=== PATIENT | female | born 1980 | race Caucasian/White ===

== ENCOUNTER 2018-09-16 16:43 | Emergency (ER) | payer BC ==
[2018-09-16] MEDS ORDERED: NS 0.9% 1000 ML** 2,000 ML IV ONE (17:24)
--- NOTE | 2018-09-16 17:33 | ED ---
Abdominal Pain/Female - HPI Summary HPI Summary: The patient is a 38 y/o F presenting to [facility] accompanied by with a chief complaint of sudden onset intermittent cramping in the umbilical region starting this afternoon. She reports that she was running a marathon today, and she had sudden abd pain following the run. She states she ate normally today and last night, and her ate the same as the patient. Watery diarrhea with episodes of hematochezia and ovi blood accompanied the abd cramping. The abd pain was alleviated with BM, but then the pain would return about 10-15 minutes later. Currently the pain is rated 2/10 in severity, but worsens intermittently. She additionally c/o increased urgency of BM, nausea, dry heaving, and headache. She denies fever, chills, and vomiting. She notes that she's had blood in her stool before, but not to this extent. Her last colonoscopy was over 10 years ago. LNMP: now, she uses the Nuva Ring. No hx. Surgical hx of three sections. FHx of DM. Nonsmoker, occasional EtOH, no substance use. - History of Current Complaint Chief Complaint: EDAbdPain Stated Complaint: ABDOMINAL PAIN PER PT Time Seen by Provider: 09/16/18 17:24 Hx Obtained From: Patient Onset/Duration: Sudden Onset, Lasting Hours, Still Present Severity Initially: Severe Severity Currently: Moderate Pain Intensity: 2 Pain Scale Used: 0-10 Numeric Location: Umbilical Radiates: No Character: Cramping Aggravating Factor(s): Nothing Alleviating Factor(s): Bowel Movement Associated Signs and Symptoms: Positive: Blood in Stool, Nausea, Other: - POSITIVE: dry heaving, diarrhea, increased urgency of BM, headache; NEGATIVE: chills. Negative: Fever, Vomiting Allergies/Adverse Reactions: Allergies Allergy/AdvReac Type Severity Reaction Status Date / Time cephalexin [From Keflex] Allergy Hives Verified 09/16/18 16:48 Penicillins Allergy Hives Verified 09/16/18 16:48 vancomycin Allergy Hives Verified 09/16/18 16:48 PMH/Surg Hx/FS Hx/Imm Hx Endocrine/Hematology History: Denies: Hx Diabetes Cardiovascular History: Denies: Hx Hypercholesterolemia, Hx Hypertension - Surgical History Surgery Procedure, Year, and Place: three C-sections Infectious Disease History: No Infectious Disease History: Denies: Traveled Outside the [place] in Last 30 Days - Family History Known Family History: Positive: Diabetes - brother Negative: Cardiac Disease, Hypertension - Social History Alcohol Use: Occasionally Hx Substance Use: No Substance Use Type: Reports: None Hx Tobacco Use: No Smoking Status (MU): Never Smoked Tobacco Do You Chew or Dip Tobacco: No Have You Chewed or Dipped Tobacco in the LAST YEAR: No Have You Smoked in the Last Year: No Review of Systems Negative: Fever, Chills Positive: Abdominal Pain - umbilical cramping intermittently, Diarrhea - watery with blood, Nausea, Other - dry heaving, increased urgency with BM. Negative: Vomiting Positive: Headache All Other Systems Reviewed And Are Negative: Yes Physical Exam - Summary Physical Exam Summary: VITAL SIGNS: Reviewed. GENERAL: Patient is a well-developed and nourished female who is lying comfortable in the stretcher. Patient is not in any acute respiratory distress. HEAD AND FACE: Normocephalic and atraumatic. EYES: PERRLA, EOMI x 2, No injected conjunctiva. EARS: Hearing grossly intact. Ear canals and tympanic membranes are WNL. MOUTH: Oropharynx within normal limits. NECK: Supple, trachea is midline, no adenopathy, no JVD. CHEST: Symmetric, no tenderness at palpation LUNGS: Clear to auscultation bilaterally. No wheezing or crackles. CVS: RRR, S1 and S2 present, no murmurs or gallops appreciated. ABDOMEN: Soft, non-tender. No signs of distention. Positive bowel sounds. No rebound no guarding, and no masses palpated. No abdominal bruit or pulsations. EXTREMITIES: FROM in all major joints, no edema, no cyanosis or clubbing. NEURO: Alert and oriented x 3. No acute neurological deficits. Speech is normal. SKIN: Dry and warm. RECTAL EXAM: No gross blood. No melena. Positive hemorrhoids. Triage Information Reviewed: Yes Vital Signs On Initial Exam: Initial Vitals Temp Pulse Resp BP Pulse Ox 97.0 F 68 18 142/116 99 09/16/18 16:46 09/16/18 16:46 09/16/18 16:46 09/16/18 16:46 09/16/18 16:46 Vital Signs Reviewed: Yes Diagnostics - Vital Signs Vital Signs Temp Pulse Resp BP Pulse Ox 09/16/18 16:46 97.0 F 68 18 142/116 99 - Laboratory Result Diagrams: 09/16/18 17:40 09/16/18 17:36 Lab Statement: Any lab studies that have been ordered have been reviewed, and results considered in the medical decision making process. Abdominal Pain Fem Course/Dx - Course Course Of Treatment: The patient is a 38 y/o F presenting to [facility] accompanied by with a chief complaint of sudden onset intermittent cramping in the umbilical region starting this afternoon. She reports that she was running a marathon today, and she had sudden abd pain following the run. She states she ate normally today and last night, and her ate the same as the patient. Watery diarrhea with episodes of hematochezia and ovi blood accompanied the abd cramping. The abd pain was alleviated with BM, but then the pain would return about 10-15 minutes later. Currently the pain is rated 2/10 in severity, but worsens intermittently. She additionally c/o increased urgency of BM, nausea , dry heaving, and headache. She denies fever, chills, and vomiting. She notes that she's had blood in her stool before, but not to this extent. Her last colonoscopy was over 10 years ago. LNMP: now, she uses the Nuva Ring. No hx. Surgical hx of three sections. FHx of DM. Nonsmoker, occasional EtOH, no substance use. Blood work without significant abnormality except for WBCs of 7.9, sodium of 133, totals CPK of 298, and amylase of 27. Beta hCG is negative. Occult blood is negative. Patient developed a severe episode of the cramping while I was present. Patient was given Zofran and morphine. At this point I decided to do an abdominopelvic CT. Patient is awaiting for the CT therefore the patient will be signed out to Dr. Vogt at shift change. - Diagnoses Provider Diagnoses: Abdominal pain Discharge - Sign-Out/Discharge Documenting (check all that apply): Sign-Out Patient Signing out patient TO: Rayshawn Vogt - The patient is a sign-out to Dr. Rayshawn Vogt MD, at change of shift at 1900 pending UA, Abd/Pel CT, and disposition. - Discharge Plan Condition: Stable Disposition: HOME Prescriptions: Dicyclomine CAP* [Bentyl CAP*] 10 mg PO TID PRN #20 cap PRN Reason: Pain - Abdominal Metoclopramide TAB* [Reglan TAB*] 10 mg PO Q6H PRN #14 tab PRN Reason: Nausea/Vomiting Patient Education Materials: Acute Abdominal Pain (ED) Referrals: Delmy Lam MD [Primary Care Provider] - 2 Days Additional Instructions: RETURN TO THE EMERGENCY DEPARTMENT FOR CHANGING OR WORSENING SYMPTOMS. - Attestation Statements Document Initiated by Claireibsalo: Yes Documenting Scribe: Sadie Live Provider For Whom Cody is Documenting (Include Credential): Dr. Ridge Sevilla MD Scribe Attestation: Sadie Becerra, scribed for Dr. Ridge Sevilla MD on 09/17/18 at 1759. Scribe Documentation Reviewed: Yes Provider Attestation: The documentation as recorded by the Sadie ramírez accurately reflects the service I personally performed and the decisions made by me, Dr. Ridge Sevilla MD Status of Scribe Document: Viewed
[2018-09-16] MEDS ORDERED: Ondansetron INJ* 2 MG/ML VIAL IV ONE (17:34)
[2018-09-16] MEDS ORDERED: Morphine 4 MG/ML VIAL (1 ml) 4 MG/ML VIAL IV ONE (17:35)
[2018-09-16 18:07] LABS: ABS Basophils 0.1 10^3/ul (0-0.2); ABS Eosinophils 0.1 10^3/ul (0-0.6); ABS Lymphocytes 0.9 10^3/ul (1.0-4.8); ABS Monocytes 0.6 10^3/ul (0-0.8); ABS Neutrophils 10.2 10^3/ul (1.5-7.7); Eosinophil % 0.7 %; Hematocrit 38 % (35-47); Hemoglobin 13.1 g/dL (12.0-16.0); Lymphocyte % 7.3 %; Mean Corpuscular HGB Conc 34 g/dL (31-36); Mean Corpuscular Hemoglobin 31 pg (27-31); Mean Corpuscular Volume 91 fL (80-97); Mean Platelet Volume 9.9 fL (7.4-10.4); Platelet Count 163 10^3/uL (150-450); Red Blood Count 4.24 10^6 /uL (3.70-4.87); Red Cell Distribution Width 14 % (10-15); White Blood Count 11.9 10^3/uL (3.5-10.8)
[2018-09-16 18:22] LABS: Albumin/Globulin Ratio 1.5 (1-3); BUN/Creatinine Ratio 16.3 (8-20); C Reactive Protein 4.48 mg/L (<8.01); Calcium 8.9 mg/dL (8.6-10.3); EGFR African American 96.1 (>60); EGFR Non-African American 79.4 (>60); Globulin 2.6 g/dL (2-4); Potassium 3.7 mmol/L (3.5-5.0); Total Bilirubin 0.7 mg/dL (0.2-1.0); Total Protein 6.6 g/dL (6.4-8.9)
[2018-09-16 18:24] LABS: Amylase 27 U/L (29-103)
[2018-09-16 18:28] LABS: HCG Pregnancy < 0.60 mIU/mL
[2018-09-16] MEDS ORDERED: Iohexol 300* (CONTRAST) 10 ML SDV IV ONE (18:56)
--- NOTE | 2018-09-16 19:04 | ED ---
Progress - Progress Note Progress Note: This patient is signed out from Dr. Sevilla at 1900 awaiting A/P CT results. - Results/Orders Results/Orders: A/P CT reveals, as per radiologist: No acute finding. ED physician has reviewed this report. Course/Dx - Course Course Of Treatment: This patient is signed out from Dr. Sevilla at 1900 awaiting A/P CT. A/P CT reveals no acute finding. Results discussed with patient. Recommended liquid diet as symptoms are likely due to a viral syndrome. Patient will be discharged home with a prescription for Reglan and Bentyl. Patient is agreeable with this plan. - Diagnoses Provider Diagnoses: Abdominal pain Discharge - Sign-Out/Discharge Documenting (check all that apply): Receiving Sign-Out Receiving patient FROM: Ridge Sevilla - A/P CT Patient Received Moderate/Deep Sedation with Procedure: No - Discharge Plan Condition: Stable Disposition: HOME Prescriptions: Dicyclomine CAP* [Bentyl CAP*] 10 mg PO TID PRN #20 cap PRN Reason: Pain - Abdominal Metoclopramide TAB* [Reglan TAB*] 10 mg PO Q6H PRN #14 tab PRN Reason: Nausea/Vomiting Patient Education Materials: Acute Abdominal Pain (ED) Referrals: Delmy Lam MD [Primary Care Provider] - 2 Days Additional Instructions: RETURN TO THE EMERGENCY DEPARTMENT FOR CHANGING OR WORSENING SYMPTOMS. - Attestation Statements Document Initiated by Scribe: Yes Documenting Scribe: Do Salcido Provider For Whom Scribe is Documenting (Include Credential): Rayshawn Vogt MD Scribe Attestation: IDo, scribed for Rayshawn Vogt MD on 09/16/18 at 2333. Status of Scribe Document: Ready
[2018-09-16] MEDS ORDERED: Metoclopramide IV* 5 MG/ML 2 ML VIAL IV SLOW PU ONE (23:26)
== END 2018-09-16 23:43 | disposition home or self-care (01) ==
LOC: EDSEX → ED 16:43
DX: R10.9 Unspecified abdominal pain (principal); R51 Headache; R19.7 Diarrhea, unspecified; R11.0 Nausea; Z88.0 Allergy status to penicillin; Z97.5 Presence of (intrauterine) contraceptive device
CPT/HCPCS: 36415; 74177; 80053; 82150; 82272; 82550; 83605; 83690; 83735; 84702; 85025; 85730; 86140; 96361; 96374; 96375; 99282; J2270; J2405; J2765; Q9967